=== PATIENT | female | born 1990 | race Caucasian/White ===

== ENCOUNTER 2017-09-29 17:23 | Emergency (ER) | payer OTHER ==
[~2017-09-29] VITALS: Ht 162.6 cm; Wt 83.1 kg
[~2017-09-29 17:23] MED LIST: ABILIFY30 MG PO; ANTIVERT25 MG PO; ENDOCET 5-3251 EACH PO; IBUPROFEN800 MG PO; MACROBID100 MG PO; Motrin PO; NORCO 5/3251 TABLET PO; PERCOCET 5/31 TABLET PO; PRENATAL TABLE1 EAC3 PO; RITALIN LA40 MG PO; TRAMADOL HCL50 MG PO; TYLENOL WITH C1 EACH PO; ULTRAM50 MG PO; ZOFRAN ODT4 MG PO; ZOFRAN4 MG PO; ~No Medications
[2017-09-29 18:40] LABS: HEMATOCRIT 40.7 % (36.0-46.0); HEMOGLOBIN 14.3 G/DL (11.9-15.5); MCHC 35.1 G/DL (30.0-36.0); MCV 85.3 FL (83-99); PLATELET COUNT 291 K/uL (156-360); RBC DIS.WIDTH-CV 11.7 % (11.8-14.6); RED BLOOD COUNT 4.77 M/uL (3.80-5.20); WHITE BLOOD COUNT 9.1 K/uL (4.1-10.2)
[2017-09-29 18:51] LABS: ALBUMIN 4.2 g/dL (3.2-4.8)
[2017-09-29 18:52] LABS: CHLORIDE 103 mEq/L (99-109); SODIUM 137 mEq/L (136-147)
[2017-09-29 18:54] LABS: GLUCOSE 105 mg/dL (70-99); TOTAL PROTEIN 7.9 g/dL (6.4-8.3)
[2017-09-29 18:57] LABS: ALKALINE PHOSPHATASE 100 IU/L (3-129); TOTAL BILIRUBIN 0.6 mg/dL (0.0-1.0)
[2017-09-29 18:58] LABS: CREATININE 0.8 mg/dL (0.6-1.3); GFR ESTIMATE (CALCULATED) > 59 mL/min/
[2017-09-29 18:59] LABS: AST (GOT) 15 IU/L (2-34); UREA NITROGEN (BUN) 18 mg/dL (9-23)
[2017-09-29 19:01] LABS: ALT (GPT) 14 IU/L (3-49); LIPASE 2 U/L (1.0-51.0)
[2017-09-29 19:18] LABS: ERTH.SED.RATE 19 MM/HR (0-20)
[2017-09-29 19:28] LABS: C-REACTIVE PROTEIN 6.3 MG/L (0-10)
[2017-09-29 19:48] LABS: TROP-I INTERPRETATION NEGATIVE; TROPONIN-I < 0.01 ng/mL (0.0-0.30)
[2017-09-29 20:05] LABS: APPEARANCE SL.HAZY ((CLEAR)); BILIRUBIN NEGATIVE; BLOOD NEGATIVE; COLOR YELLOW ((YELLOW)); GLUCOSE (STRIP) NEGATIVE; KETONES 20; LEUKOCYTES NEGATIVE; NITRITE NEGATIVE; PROTEIN (STRIP) 30; SPECIFIC GRAVITY 1.025 (1.000-1.030); UROBILINOGEN 0.2 MG/DL (0.2-1.0)
[2017-09-29 20:16] LABS: AMPHETAMINE NEGATIVE (500 ng/mL); BACTERIA RARE /HPF; BARBITURATES NEGATIVE (200 ng/mL); BENZODIAZEPINES PRESUMPTIVE POSITIVE (150 ng/mL); BUPRENORPHINE NEGATIVE (10 ng/mL); COCAINE NEGATIVE (150 ng/mL); EPITHELIAL CELLS 1+ /HPF; HYALINE CASTS 0-5 /LPF; METHADONE NEGATIVE (200 ng/mL); METHAMPHETAMINE NEGATIVE (500 ng/mL); MUCUS TRACE /LPF; OPIATES (MORPHINE) NEGATIVE (100 ng/mL); OXYCODONE NEGATIVE (100 ng/mL); PHENCYCLIDINE NEGATIVE (25 ng/mL); PROPOXYPHENE NEGATIVE (300 ng/mL); RED BLOOD CELLS 0-5 /HPF (0-5); THC CANNABINOIDS NEGATIVE (50 ng/mL); TRICYCLIC ANTIDEPRESSANTS NEGATIVE (300 ng/mL); UCUL ADDED? NO; WHITE BLOOD CELLS 0-5 /HPF (0-5)
[2017-09-29] MEDS ORDERED: ZOFRAN ODT4 MG PO (20:37)
[2017-09-29 20:50] LABS: BENZODIAZEPINES, URINE SCREEN POSITIVE (200 ng/mL)
[2017-09-29] MEDS ORDERED: PREDNISONE20 MG PO (21:17)
[2017-09-29 21:37] VITALS: BP 149/92
== END 2017-09-29 21:38 | disposition home or self-care (01) ==
LOC: EME 17:23
PROVIDERS: Nurse Practitioner Family
DX: J06.9 Acute upper respiratory infection, unspecified (principal); J32.9 Chronic sinusitis, unspecified; H57.11 Ocular pain, right eye; R11.0 Nausea; R20.0 Anesthesia of skin; F31.9 Bipolar disorder, unspecified; Z88.2 Allergy status to sulfonamides; Z88.0 Allergy status to penicillin
CPT/HCPCS: 70450; 71046; 80053; 81003; 83690; 84484; 84999; 85027; 85652; 86140; 93005; 99281; 99285; J2060; J2405; J7512